=== PATIENT | male | born 1985 | race African-American/Black ===

== ENCOUNTER 2019-02-07 09:08 | Emergency (ER) | payer OTHER ==
[~2019-02-07] VITALS: Ht 175.3 cm; Wt 97.5 kg
[2019-02-07 09:32] LABS: ABSOLUTE NEUTROPHILS 2.1 thou/uL (1.4-8.2); BASOPHILS 1.2 % (0.0-2.0); EOSINOPHILS 6.5 % (0.0-3.0); HEMATOCRIT 48.2 % (42.0-52.0); LYMPHOCYTES 38.9 % (24.0-44.0); MCH 27.4 pg (26.0-34.0); MCHC 33.3 g/dL (28.0-37.0); MCV 82.2 fL (80.0-100.0); MONOCYTES 9.9 % (1.0-8.0); PLATELET COUNT 228 thou/uL (150-400); POLYS 43.5 % (36.0-66.0); RBC 5.86 mil/uL (4.50-6.00); RDW 13.2 % (10.5-14.5); WBC 4.9 thou/uL (4.0-11.0)
[2019-02-07 09:41] LABS: ANION GAP 9 mmol/L (7-16); BUN 11 mg/dL (7-18); CALCIUM 10.2 mg/dL (8.5-10.1); CHLORIDE 98 mmol/L (98-107); CO2 29 mmol/L (21-32); CREATININE 1.3 mg/dL (0.7-1.3); GLUCOSE 132 mg/dL (74-106); POTASSIUM 3.3 mmol/L (3.5-5.1); SODIUM 136 mmol/L (136-145)
[2019-02-07 09:50] LABS: TROPONIN-I <0.06 ng/mL (<0.06)
[2019-02-07 10:43] VITALS: BP 129/84
--- NOTE | 2019-02-07 19:44 | EKG ---
[place] [address] [facility] [place] [address] ELECTROCARDIOGRAM REPORT Name: JAYNA WONG Room #: DEP TUNG Vargas#: [id number] ������������������ Admission: 02/07/19 ������������������ Attend Phys: Discharge: 02/07/19 ������������������ Date of : 89 Report #: [id number] ����������������������������������������������������������������� [id number] THIS REPORT FOR: //name// [facility] ED Test Date: 2019-02-07 Test Time: 09:20:15 Pat Name: JAYNA WONG Department: Room: Gender: [employer]: NEENA : 1985 Requested By: Neris Maradiaga Order Number: [id number] MD: Kevin Jerez Measurements Intervals [place] Rate: 85 P: 46 PA: 226 QRS: 14 QRSD: 88 T: 58 QT: 356 QTc: 424 Interpretive Statements Sinus rhythm Prolonged PA interval left atrial enlargement Nonspecific st/t wave changes No previous ECG available for comparison Electronically Signed On 02-07-2019 19:44:23 CDT by Kevin Jerez [email or web address] ��������������������������������������������� <ELECTRONICALLY SIGNED> ���������������������������������������� By: Kevin Jerez MD ��������������������������������������������� 02/07/19 1944 0920 9 Kevin Jerez MD /SHERIE
== END 2019-02-07 10:49 | disposition home or self-care (01) ==
LOC: ER 09:08
PROVIDERS: Student in an Organized Health Care Education/Training Program
DX: F41.9 Anxiety disorder, unspecified (principal); G47.00 Insomnia, unspecified